=== PATIENT | male | born 1995 | race African-American/Black ===

== ENCOUNTER 2021-06-23 16:25 | Emergency (ER) | payer MEDICAID, SELFPAY ==
[2021-06-23 16:36] VITALS: BP 142/86; PULSE 89; RESP 18; O2SAT 98; BMI 26.2
--- NOTE | 2021-06-23 16:51 | XR_ITS ---
PROCEDURE INFORMATION: Exam: XR Right Foot Exam date and time: 06/23/2021 5:06 PM Age: 26 years old Clinical indication: Injury or trauma; Fall; Sprain or strain; Foot; Right TECHNIQUE: Imaging protocol: XR Right foot. Views: 3 or more views. COMPARISON: No relevant prior studies available. FINDINGS: Bones/joints: Lateral series 3 shows an ovoid 3 mm calcification anterior to the distal talus, which could be tiny cortical avulsion injury of indeterminate age. Chronic spurring noted at the anterior distal tibia, please see the ankle report for ankle findings. Arthritis at the 1st tarsal-metatarsal joint with prominent medial spurring of the medial cuneiform bone. There are no lytic skeletal lesions seen. Soft tissues: Soft tissue swelling greatest at the lateral ankle and hindfoot.No radiopaque foreign bodies seen. IMPRESSION: 1. Tiny ovoid 3 mm ossicle abutting the anterior distal talus which could be a tiny cortical avulsion injury of indeterminate age, correlate for point tenderness. 2. No other acute fracture or dislocation in the foot. 3. 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
--- NOTE | 2021-06-23 16:51 | XR_ITS ---
PROCEDURE INFORMATION: Exam: XR Right Ankle Exam date and time: 06/23/2021 5:08 PM Age: 26 years old Clinical indication: Injury or trauma; Fall; Sprain or strain; Ankle; Right TECHNIQUE: Imaging protocol: XR Right ankle. Views: 3 or more views. COMPARISON: CR XR FOOT RT MIN 3V 06/23/2021 5:06 PM FINDINGS: Bones/joints: A 4 mm chipped osteophyte suggested at the anterior tip of the distal tibia on lateral series 1, of indeterminate age, which could be an old injury or recent avulsion of a chronic osteophyte. There is degenerative cortical irregularity of the anterior distal talar cortex which appears chronic. There is also slight lobulation/degenerative cortical irregularity of the tip of the medial malleolus and of the medial talus at the deltoid ligament attachments. Bones otherwise appear intact, normally aligned, with normal mineralization. Small ankle effusion. Soft tissues: Periarticular soft tissue swelling, which appears greatest anteriorly and laterally.No radiopaque foreign bodies seen. IMPRESSION: 1. Mild chronic degenerative changes at the anterior ankle, as detailed above. 2. A 4 mm chipped anterior distal tibial osteophyte which could be old versus acute injury. 3. No other fracture or dislocation. 4. Ankle effusion. 5. Periarticular swelling, which could be due to sprain or contusion.
[2021-06-23 17:33] VITALS: BP 115/87; PULSE 85; RESP 16; TEMP 37; O2SAT 97; BMI 25.4
--- NOTE | 2021-06-23 17:36 | HMH.EDUTC ---
[facility] [place] Clinical Impression: Right ankle sprain Qualifiers: Encounter type: initial encounter Involved ligament of ankle: unspecified ligament Qualified Code(s): S93.401A - Sprain of unspecified ligament of right ankle, initial encounter Right foot sprain Qualifiers: Encounter type: initial encounter Qualified Code(s): S93.601A - Unspecified sprain of right foot, initial encounter Fall Qualifiers: Encounter type: initial encounter Qualified Code(s): W19.XXXA - Unspecified fall, initial encounter Disposition: Home, Self-Care Condition on Discharge: Good Instructions: How to Use Crutches, Ankle Sprain, DI for Ankle Sprain Additional Instructions: Rest the extremity, apply ice for 15 minutes as tolerated three or four times per day, Elevate the extremity as tolerated while you are resting. Take ibuprofen for pain. I sent in a prescription to your pharmacy. Follow up with Dr. Sanchez (podiatry). Sometimes there can be fractures that don't show up well on the first set of x-rays. So, you should follow up if you continue to have symptoms. I put in a referral but you need to call her office and schedule an appointment. Follow up with your regular doctor. GO TO THE ER FOR ANY WORSENING SYMPTOMS Prescriptions: Ibuprofen [Ibuprofen 800mg Tablet] 800 mg PO Q8HP PRN #30 tab PRN Reason: Moderate Pain Transmission Status: Received by [facility] #[id number] Referrals: Provider,Referral, [Primary Care Provider] - Rachel Sanchez DPM [Staff Physician] - Time of Disposition: 18:11 Medical Decision Making - Medical Records Medical records reviewed: No: I reviewed the patient's medical records. - Artemio Inquiry Pt receiving controlled substance: No Vital Signs: 06/23/21 16:36 06/23/21 17:33 06/23/21 18:22 Temperature 98.6 F 98.6 F Temperature Source Oral Pulse Rate 85 Pulse Rate [Right Radial] 89 85 Respiratory Rate 18 16 16 Blood Pressure 115/87 Blood Pressure [Right Arm] 142/86 H 115/87 Blood Pressure Mean [Right Arm] 104 96 Blood Pressure Source [Right Arm] Automatic Cuff Blood Pressure Position [Right Arm] Sitting 02 Sat by Pulse Oximetry 98 97 Oxygen Delivery Method Room Air [facility] [place] HPI - General Stated complaint: R ankle pain Time Seen by Provider: 06/23/21 17:36 Mode of Arrival: Ambulatory Source of Information: Patient Limitations: No Limitations Description of Symptoms (Recalled from Triage Doc. by RN): pt states he fell down some steps last night and is now having R foot/ankle pain. HEENT Symptoms (Recalled from RN notes): No Resp Symptoms (Recalled from RN notes): No Skin Symptoms (Recalled from RN notes): No MS Symptoms (Recalled from RN notes): Yes Functional Status (Recalled from RN notes): wnl - History of Present Illness Provider Complaint: He stepped down wrong off his steps last night and twisted her right foot and yobani. - Related Data Previous Rx's Medication Instructions Recorded Ibuprofen [Ibuprofen 800mg 800 mg PO Q8HP PRN #30 tab 06/23/21 Tablet] Allergies Allergy/AdvReac Type Severity Reaction Status Date / Time Sulfa (Sulfonamide Allergy Verified 06/23/21 17:36 Antibiotics) - Worker's Comp Is this a Worker's Comp case?: No [facility] History - Hepatitis A Screen Drug use history?: No High risk sexual behaviors?: No History of sexually transmitted infection?: No Currently employed?: No Childcare worker?: No Do you have indoor plumbing?: Yes Do you have electricity?: Yes Attestation statement:: This patient has been screened for Hepatitis A risk factors. I have reviewed the patient's past medical history: Yes ROS Obtained: Yes All systems reviewed & no additional complaints - Constitutional Constitutional: Denies chills, Denies fever(s) - Musculoskeletal Musculoskeletal: Reports as per HPI - Integumentary/Breasts Skin/Breast: Denies redness, Denies rash, Denies wounds - Neurologic Neurol
[2021-06-23 18:22] VITALS: BP 115/87; PULSE 85; RESP 16; TEMP 37
== END 2021-06-23 18:32 | disposition home or self-care (01) ==
PROVIDERS: Emergency Provider Nurse Practitioner Family
DX: S93.401A Sprain of unspecified ligament of right ankle, initial encounter (principal); S93.601A Unspecified sprain of right foot, initial encounter; W10.9XXA Fall (on) (from) unspecified stairs and steps, initial encounter
CPT/HCPCS: 29515; 73610; 73630; 99212; G0463

== ENCOUNTER 2021-06-29 15:16 | Emergency (ER) | payer MEDICAID, SELFPAY ==
--- NOTE | 2021-06-29 15:30 | XR_ITS ---
FINAL REPORT CLINICAL HISTORY: fall, pain, swelling COMPARISON: 06/23/2021 FINDINGS: RIGHT FOOT Three views demonstrate no acute fracture or dislocation. The joint spaces appear normal. The visualized bony structures are well aligned. No soft tissue abnormality is seen. IMPRESSION: No acute process. If symptoms persist, MRI may be helpful. Reviewed, Interpreted and Dictated by Sundeep Rodríguez III, MD Transcribed by Padmini Wilkerson Authenticated by Sundeep Rodríguez III, MD on 06/29/2021 04:23:31 PM [facility]
--- NOTE | 2021-06-29 15:30 | XR_ITS ---
FINAL REPORT CLINICAL HISTORY: fall, pain, swelling COMPARISON: 06/23/2021 FINDINGS: RIGHT ANKLE Three views demonstrate no acute fracture or dislocation. The joint spaces appear normal. The visualized bony structures are well aligned. No soft tissue abnormality is seen. IMPRESSION: No acute process. If symptoms persist, MRI may be helpful. Reviewed, Interpreted and Dictated by Sundeep Rodríguez III, MD Transcribed by Padmini Wilkerson Authenticated by Sundeep Rodríguez III, MD on 06/29/2021 04:23:29 PM [facility]
--- NOTE | 2021-06-29 15:30 | XR_ITS ---
FINAL REPORT CLINICAL HISTORY: fall, pain and swelling FINDINGS: RIGHT TIBIA FIBULA Two views demonstrate no acute fracture or dislocation. The joint spaces appear normal. The visualized bony structures are well aligned. No soft tissue abnormality is seen. IMPRESSION: No acute process. Reviewed, Interpreted and Dictated by Sundeep Rodríguez III, MD Transcribed by Padmini Wilkerson Authenticated by Sundeep Rodríguez III, MD on 06/29/2021 04:23:23 PM [facility]
[2021-06-29 17:10] VITALS: BP 128/81; PULSE 54; RESP 16; TEMP 36.7; O2SAT 100; BMI 26.7
--- NOTE | 2021-06-29 17:31 | HMH.EDUTC ---
[facility] – [place] Disposition Clinical Impression: Right foot pain Right ankle pain Qualifiers: Chronicity: acute Qualified Code(s): M25.571 - Pain in right ankle and joints of right foot Right ankle sprain Qualifiers: Encounter type: initial encounter Involved ligament of ankle: unspecified ligament Qualified Code(s): S93.401A - Sprain of unspecified ligament of right ankle, initial encounter Disposition: Home, Self-Care Condition on Discharge: Good Instructions: DI for Ankle Sprain, DI for Ankle Pain Additional Instructions: Rest the extremity, Elevate the extremity as tolerated while you are resting. Take ibuprofen for pain. Follow up with Dr. Sanchez (orthopedics). Sometimes there can be fractures that don't show up well on the first set of x-rays. So, you should follow up if you continue to have symptoms. I put in a referral but you need to call her office and schedule an appointment. Follow up with your regular doctor. GO TO THE ER FOR ANY WORSENING SYMPTOMS Referrals: Provider,Referral, MD [Primary Care Provider] - Time of Disposition: 17:56 Medical Decision Making - Medical Records Medical records reviewed: No: I reviewed the patient's medical records. - Artemio Inquiry Pt receiving controlled substance: No Vital Signs: 06/29/21 17:10 06/29/21 18:09 Temperature 98.1 F 98.1 F Temperature Source Oral Pulse Rate 54 L Pulse Rate [Left] 54 L Respiratory Rate 16 16 Blood Pressure 128/81 Blood Pressure [Right Arm] 128/81 Blood Pressure Mean [Right Arm] 96 02 Sat by Pulse Oximetry 100 [facility] [place] HPI - General Stated complaint: AO 06/21 injured R foot Time Seen by Provider: 06/29/21 17:31 Mode of Arrival: Ambulatory Source of Information: Patient Limitations: No Limitations Description of Symptoms (Recalled from Triage Doc. by RN): pt fell down stairs on 06/21 and was seen here. pt c/o R foot/ankle pain that is persisting. pt states he did not f/u with the supervisor [employer] department as instructed. HEENT Symptoms (Recalled from RN notes): No Resp Symptoms (Recalled from RN notes): No Skin Symptoms (Recalled from RN notes): No MS Symptoms (Recalled from RN notes): Yes Functional Status (Recalled from RN notes): wnl - History of Present Illness Provider Complaint: He is back with continued complaints of right foot pain. He has not followed up with orthopedics or podiatry. - Related Data Previous Rx's Medication Instructions Recorded Ibuprofen [Ibuprofen 800mg 800 mg PO Q8HP PRN #30 tab 06/23/21 Tablet] Allergies Allergy/AdvReac Type Severity Reaction Status Date / Time Sulfa (Sulfonamide Allergy Verified 06/23/21 17:36 Antibiotics) - Worker's Comp Is this a Worker's Comp case?: No [facility] History - Hepatitis A Screen Drug use history?: No High risk sexual behaviors?: No History of sexually transmitted infection?: No Currently employed?: No Childcare worker?: No Do you have indoor plumbing?: Yes Do you have electricity?: Yes Attestation statement:: This patient has been screened for Hepatitis A risk factors. I have reviewed the patient's past medical history: Yes ROS Obtained: No All systems reviewed & no additional complaints - Constitutional Constitutional: Denies chills, Denies fever(s) - Musculoskeletal Musculoskeletal: Reports as per HPI - Integumentary/Breasts Skin/Breast: Denies redness, Denies rash, Denies wounds - Neurologic Neurologic: Denies tingling/numbness/burning sensations Physical Exam - General General appearance: alert, in no apparent distress - Head Head exam: atraumatic, normocephalic, normal inspection - Eye Eye exam: Present: normal appearance, PERRL, EOMI - ENT ENT exam: Present: normal exam, normal oropharynx, mucous membranes moist, TM's normal bilaterally, normal external ear exam - Neck Neck exam: Present: normal inspection, full ROM, trachea midline. Absent: meningismus, lymphadenopathy - Chest Chest inspection: Pr
[2021-06-29 18:09] VITALS: BP 128/81; PULSE 54; RESP 16; TEMP 36.7
== END 2021-06-29 18:10 | disposition home or self-care (01) ==
PROVIDERS: Emergency Provider Nurse Practitioner Family
DX: S93.401A Sprain of unspecified ligament of right ankle, initial encounter (principal); W10.9XXA Fall (on) (from) unspecified stairs and steps, initial encounter; Y92.019 Unspecified place in single-family (private) house as the place of occurrence of the external cause
CPT/HCPCS: 73590; 73610; 73630; 99282

== ENCOUNTER 2021-10-13 19:22 | Emergency (ER) | payer MEDICAID, SELFPAY ==
[2021-10-13 19:44] VITALS: BMI 25.5
--- NOTE | 2021-10-13 19:45 | XR_ITS ---
PROCEDURE INFORMATION: Exam: XR Chest Exam date and time: 10/13/2021 7:51 PM Age: 26 years old Clinical indication: Cough TECHNIQUE: Imaging protocol: Radiologic exam of the chest. Views: 2 views. COMPARISON: No relevant prior studies available. FINDINGS: Lungs: Upper normal lung volumes. No consolidation. Pulmonary vessels do not appear congested. Question tiny right basilar granuloma seen on the frontal view, or this may be a prominent vascular shadow as this is not well seen on the lateral radiograph. No acute findings. Pleural spaces: Unremarkable. No significant pleural effusion. No pneumothorax. Heart/Mediastinum: The cardiac silhouette is normal. Bones/joints: There is no evidence of acute fracture. IMPRESSION: No acute findings.
[2021-10-13 19:56] VITALS: BP 130/73; PULSE 92; RESP 18; TEMP 37.6; O2SAT 99; BMI 25.5
[2021-10-13 20:03] LABS: Influenza A, PCR Not Detected (NotDetected); Influenza B, PCR Not Detected (NotDetected)
[2021-10-13 20:06] LABS: Basophils % 0.5 % (0.1-2.0); Eosinophils # 0.1 K/mm3 (0.0-0.4); Eosinophils % 1.1 % (0.1-12.0); Hematocrit 42.3 % (42.0-52.0); Hemoglobin 14.2 g/dL (14.1-18.0); Lymphocytes % 13.3 % (10-50); Mean Corpuscular HGB Conc 33.5 g/dL (31.8-35.4); Mean Corpuscular Hemoglobin 28.3 pg (27.0-31.2); Mean Corpuscular Volume 84.3 fl (80-94); Mean Platelet Volume 7.4 fl (7.4-10.4); Monocytes # 0.5 K/mm3 (0.1-1.0); Monocytes % 6.4 % (1.7-9.3); Neutrophils # 5.8 K/mm3 (1.8-7.8); Neutrophils % 78.8 % (37.0-80.0); Platelet Count 211 K/mm3 (142-424); Red Blood Count 5.02 M/mm3 (4.60-6.20); Red Cell Distribution Width 13.6 % (11.5-17.5); White Blood Count 7.3 K/mm3 (4.8-10.8)
[2021-10-13 20:10] LABS: Alanine Aminotransferase 23 U/L (12-78); Albumin Level 4.8 g/dl (3.5-5.0); Albumin/Globulin Ratio 1.7 (1.1-1.8); Alkaline Phosphatase 56 U/L (38-126); Anion Gap 10.5 mEq/L (5-15); Aspartate Amino Transferase 27 U/L (17-59); Bilirubin,Total 0.5 mg/dl (0.2-1.3); Blood Urea Nitrogen 9 mg/dl (9-20); Calcium 9.7 mg/dl (8.4-10.2); Carbon Dioxide 25 mmol/L (22.0-30.0); Chloride 102 mmol/L (98-107); Creatinine Clearance Estimated 140 mL/min (50-200); Estimated Glomerular Filt Rate 82 ml/min (>60); GFR (African American) 100 ML/MIN (>60); Globulin 2.8 g/dL (1.3-3.2); Glucose 127 mg/dl (74-100); Magnesium 1.6 mg/dl (1.6-2.3); Potassium 3.5 mmoL/L (3.5-5.1); Sodium 134 mmol/L (136-145); Total Protein,Serum 7.6 g/dl (6.3-8.2)
[2021-10-13 20:11] LABS: Lactic Acid 1.3 mmol/L (0.7-2.1)
[2021-10-13 20:16] LABS: C-Reactive Protein 1.5 mg/L (0-4)
[2021-10-13 20:38] LABS: Procalcitonin < 0.030 ng/mL (0.0-2.0)
--- NOTE | 2021-10-13 20:39 | HMH.EDURI ---
ED Disposition Clinical Impression: COVID-19 Disposition: Home, Self-Care Condition on Discharge: Good Instructions: DI for COVID-19 (Suspected or Confirmed ) Additional Instructions: fluids and tyenol and see pcp for follow up Referrals: Provider,Referral, [Primary Care Provider] - - Critical Care Critical Care Time: No Attestation: On 10/13/21, the high probability of a clinically significant, sudden or life threatening deterioration of the following system(s) required my full and direct attention, intervention and personal management. The time I documented below is in addition to time spent performing reported procedures but includes the following listed in this critical care notation. Medical Decision Making - Medical Records Medical records reviewed: Yes: I reviewed the patient's medical records. - Artemio Inquiry Pt receiving controlled substance: No Vital Signs: 10/13/21 19:56 Temperature 99.7 F H Temperature Source Oral Pulse Rate [Apical] 92 H Respiratory Rate 18 Blood Pressure [Right Arm] 130/73 Blood Pressure Mean [Right Arm] 92 Blood Pressure Source [Right Arm] Automatic Cuff Blood Pressure Position [Right Arm] Sitting 02 Sat by Pulse Oximetry 99 Oxygen Delivery Method Room Air - Lab Data Lab results reviewed: Yes: I reviewed the patient's lab results. Lab Results 10/13/21 19:40: WBC 7.3, RBC 5.02, Hgb 14.2, Hct 42.3, MCV 84.3, MCH 28.3, MCHC 33.5, RDW 13.6, Plt Count 211, MPV 7.4, Neut % (Auto) 78.8, Lymph % (Auto) 13.3, [place] % (Auto) 6.4, Eos % (Auto) 1.1, Baso % (Auto) 0.5, Neut # (Auto) 5.8, Lymph # (Auto) 1.0, [place] # (Auto) 0.5, Eos # (Auto) 0.1, Baso # (Auto) 0.0, ESR 4 10/13/21 19:40: Sodium 134 L, Potassium 3.5, Chloride 102, Carbon Dioxide 25, Anion Gap 10.5, BUN 9, Creatinine 1.10, Estimated Creat Clear 140, Estimated GFR 82, Est GFR ( Amer) 100, Glucose 127 H, Calcium 9.7, Magnesium 1.6, Total Bilirubin 0.5, AST 27, ALT 23, Alkaline Phosphatase 56, C-Reactive Protein 1.5, Total Protein 7.6, Albumin 4.8, Globulin 2.8, Albumin/Globulin Ratio 1.7, Procalcitonin < 0.030 10/13/21 19:40: Lactate 1.3 10/13/21 19:40: SARS-CoV-2 (PCR) Detected A, Influenza A Untype (PCR) Not detected, Influenza Type B (PCR) Not detected Result diagrams: 10/13/21 19:40 10/13/21 19:40 Orders (Tests/Meds): ED MEDICATIONS Generic Name Dose Route Start Last Admin Trade Name Freq PRN Reason Stop Dose Admin Sodium Chloride 1,000 mls @ 999 mls/hr 10/13/21 20:00 10/13/21 19:50 Sod Chlor 0.9% 1000ml Bag IV 10/13/21 21:00 999 mls/hr .Q1H1M ROXY Administration Discontinued Medications Generic Name Dose Route Start Last Admin Trade Name Freq PRN Reason Stop Dose Admin Acetaminophen 1,000 mg 10/13/21 19:46 10/13/21 19:49 Acetaminophen 500mg Tab PO 10/13/21 19:47 1,000 mg ONCE ONE Administration Ketorolac Tromethamine 30 mg 10/13/21 19:46 10/13/21 19:49 Ketorolac 30mg/Ml Vial IV 10/13/21 19:47 30 mg ONCE ONE Administration Methylprednisolone Sodium Succinate 125 mg 10/13/21 19:47 10/13/21 19:49 Methylprednisolone Sod Succ 125mg Vial IV 10/13/21 19:48 125 mg ONCE ONE Administration Ondansetron HCl 4 mg 10/13/21 19:46 10/13/21 19:49 Ondansetron 4mg/2ml Vial IV 10/13/21 19:47 4 mg ONCE ONE Administration ORDERS Category Date Time Status Urinalysis and Microscopic Stat Lab 10/13/21 21:07 Received Blood Culture Stat Micro 10/13/21 19:40 Received - Radiology Data #1 Image(s): Chest Image Reviewed: Yes I have reviewed radiologist's interpretation Preliminary Findings: Normal/NAD Medical Decision Narrative: pt with covid-19 and stable cxr and labs and exam URI/Sore Throat HPI - General Chief Complaint: Upper Respiratory Infection Stated Complaint: sore throat,body aches, SHIELDS Time Seen by Provider: 10/13/21 20:39 Mode of Arrival: Wheelchair Source of Information: Patient, Medical Record Limitations: No Limitatio
[2021-10-13 20:50] LABS: Erythrocyte Sedimentation Rate 4 mm/hr (0-15)
[2021-10-13 20:57] LABS: Coronavirus 19, PCR Detected (NotDetected)
[2021-10-13 21:11] LABS: Microscopic, Urine URINE MICROSCOPIC (MICROSCOPIC)
[2021-10-13 21:13] LABS: Appearance,Urine CLEAR (Clear); Bilirubin,Urine Negative (Negative); Blood, Urine Negative (Negative); Color,Urine YELLOW (Yellow); Glucose,Urine (UA) Negative (Negative); Ketones,Urine Negative (Negative); Leukocyte Esterase,Urine Negative (Negative); Nitrate,Urine Negative (Negative); Protein,Urine Negative (Negative)
[2021-10-13 21:14] VITALS: BP 122/69; PULSE 82; O2SAT 100
[2021-10-13 21:26] VITALS: BP 120/70; PULSE 80; RESP 18; TEMP 36.8; O2SAT 98
[2021-10-13 21:54] LABS: Bacteria,Urine 1+ /lpf; Mucus,Urine 1+ /lpf
== END 2021-10-13 21:28 | disposition home or self-care (01) ==
PROVIDERS: Emergency Provider Emergency Medicine
DX: U07.1 COVID-19 (principal)
CPT/HCPCS: 71046; 80053; 81001; 83605; 83735; 84145; 85025; 85651; 86140; 87040; 96365; 96375; 99284; C9803; J2405; U0003; U0005

== ENCOUNTER 2021-10-16 15:51 | Emergency (ER) | payer MEDICAID, SELFPAY ==
--- NOTE | 2021-10-16 15:51 | ECG_ITS ---
APPROVED REPORT Exam: Resting ECG HR:50 bpm ECG Measurements Heart Rate 50 AXES WI 155 P 70 QRSd 97 QRS 70 QT 377 T 54 QTc 350 Conclusion SINUS BRADYCARDIA WITH MARKED SINUS ARRHYTHMIA BORDERLINE ECG UNCONFIRMED REPORT Electronically signed by : Osvaldo Doyle MD 10/19/2021 21:16:25
[2021-10-16 15:59] VITALS: BP 135/86; PULSE 56; RESP 19; TEMP 37; O2SAT 100; BMI 27.7
--- NOTE | 2021-10-16 16:00 | PC.NURSE ---
IV established and blood sent to the lab.
[2021-10-16 16:19] LABS: Basophils # 0.1 K/mm3 (0-0.2); Basophils % 2.3 % (0.1-2.0); Eosinophils # 0.1 K/mm3 (0.0-0.4); Eosinophils % 1.1 % (0.1-12.0); Hematocrit 46.7 % (42.0-52.0); Hemoglobin 14.9 g/dL (14.1-18.0); Lymphocytes # 2.4 K/mm3 (0.7-4.5); Lymphocytes % 51.8 % (10-50); Mean Corpuscular Hemoglobin 27.9 pg (27.0-31.2); Mean Platelet Volume 8.3 fl (7.4-10.4); Monocytes # 0.3 K/mm3 (0.1-1.0); Monocytes % 6.8 % (1.7-9.3); Neutrophils # 1.8 K/mm3 (1.8-7.8); Platelet Count 166 K/mm3 (142-424); Red Blood Count 5.37 M/mm3 (4.60-6.20); Red Cell Distribution Width 13.6 % (11.5-17.5); White Blood Count 4.7 K/mm3 (4.8-10.8)
[2021-10-16 16:21] LABS: Chloride 105 mmol/L (98-107); Potassium 3.6 mmoL/L (3.5-5.1); Sodium 141 mmol/L (136-145)
[2021-10-16 16:23] LABS: Blood Urea Nitrogen 12 mg/dl (9-20); Creatinine Clearance Estimated 153 mL/min (50-200); Estimated Glomerular Filt Rate 92 ml/min (>60); GFR (African American) 111 ML/MIN (>60)
[2021-10-16 16:24] LABS: Alanine Aminotransferase 26 U/L (12-78); Albumin Level 4.3 g/dl (3.5-5.0); Albumin/Globulin Ratio 1.6 (1.1-1.8); Alkaline Phosphatase 36 U/L (38-126); Anion Gap 9.6 mEq/L (5-15); Aspartate Amino Transferase 37 U/L (17-59); Bilirubin,Total 0.4 mg/dl (0.2-1.3); Calcium 8.9 mg/dl (8.4-10.2); Carbon Dioxide 30 mmol/L (22.0-30.0); Globulin 2.7 g/dL (1.3-3.2); Glucose 99 mg/dl (74-100)
[2021-10-16 16:25] LABS: MANUAL DIFFERENTIAL MANUAL DIFFERENTIAL (MANUAL DIFF)
--- NOTE | 2021-10-16 16:25 | PC.NURSE ---
portable xr at the bedside
--- NOTE | 2021-10-16 16:26 | HMH.EDGENADL ---
ED Disposition Clinical Impression: Chest wall pain, COVID-19 Disposition: Home, Self-Care Condition on Discharge: Good Additional Instructions: You have been evaluated for chest pain with cough, likely due to COVID-19 and chest wall pain. Please take Tylenol and Motrin for aches and pains. Monitor your symptoms closely. Follow-up with your primary care doctor in 1 to 2 days for symptom recheck. Return to the emergency department at once for any new or worsening chest pain, difficulty breathing, any other concerns. Referrals: Provider,Referral, [Primary Care Provider] - Time of Disposition: 17:21 - Critical Care Critical Care Time: No Attestation: On 10/16/21, the high probability of a clinically significant, sudden or life threatening deterioration of the following system(s) required my full and direct attention, intervention and personal management. The time I documented below is in addition to time spent performing reported procedures but includes the following listed in this critical care notation. Medical Decision Making - Medical Records Medical records reviewed: Yes: I reviewed the patient's medical records. - Artemio Inquiry Pt receiving controlled substance: No Vital Signs: 10/16/21 15:59 10/16/21 16:30 Temperature 98.6 F Temperature Source Oral Pulse Rate 67 Pulse Rate [Right Radial] 56 L Respiratory Rate 19 18 Blood Pressure 117/73 Blood Pressure [Right Arm] 135/86 Blood Pressure Mean 87 Blood Pressure Mean [Right Arm] 102 02 Sat by Pulse Oximetry 100 100 Oxygen Delivery Method Room Air - Lab Data Lab Results 10/16/21 15:57: WBC 4.7 L D, RBC 5.37, Hgb 14.9, Hct 46.7, MCV 87.0, MCH 27.9, MCHC 32.0, RDW 13.6, Plt Count 166, MPV 8.3, Neut % (Auto) 38.0, Lymph % (Auto) 51.8 H, [place] % (Auto) 6.8, Eos % (Auto) 1.1, Baso % (Auto) 2.3 H, Neut # (Auto) 1.8, Lymph # (Auto) 2.4, [place] # (Auto) 0.3, Eos # (Auto) 0.1, Baso # (Auto) 0.1 10/16/21 15:57: Sodium 141, Potassium 3.6, Chloride 105, Carbon Dioxide 30, Anion Gap 9.6, BUN 12 D, Creatinine 1.00, Estimated Creat Clear 153, Estimated GFR 92, Est GFR ( Amer) 111, Glucose 99, Calcium 8.9, Total Bilirubin 0.4, AST 37 D, ALT 26, Alkaline Phosphatase 36 L, Troponin I < 0.01, C-Reactive Protein 1.0 D, Total Protein 7.0, Albumin 4.3, Globulin 2.7, Albumin/Globulin Ratio 1.6 Result diagrams: 10/16/21 15:57 10/16/21 15:57 Orders (Tests/Meds): ED MEDICATIONS Discontinued Medications Generic Name Dose Route Start Last Admin Trade Name Freq PRN Reason Stop Dose Admin Ibuprofen 600 mg 10/16/21 17:06 Ibuprofen 600 Mg Tablet PO 10/16/21 17:07 ONCE ONE ORDERS Category Date Time Status Complete Blood Count Auto Diff Stat Lab 10/16/21 15:57 Results Troponin I Q3H Lab 10/16/21 19:15 Ordered Troponin I Q3H Lab 10/16/21 22:15 Ordered - ECG Data Tracing #1 Sinus rhythm with ventricular rate of 50 beats minute. QRS 97, QTc 350. No ST segment changes. No arrhythmia. Medical Decision Narrative: In summary this is a 26-year-old male on day 4 of COVID virus presenting to the emergency department with chest pain. Patient clinically stable on arrival. Vital signs within normal limits. No tachycardia or hypoxia. Will obtain CBC, BMP, chest x-ray, EKG, troponin profile, CRP. He denies shortness of breath. No pleuritic chest pain. No tachycardia or hypoxia to suggest pulmonary embolism. EKG shows sinus bradycardia. No evidence of ischemia or arrhythmia. X-ray shows no focal opacity or evidence of multifocal pneumonia. Laboratory results are quite reassuring. Troponin undetectable. Concern for ischemic disease is quite low. CRP is not elevated. Doubt myocarditis. \ On reassessment, patient says he is feeling somewhat better. Is chest pain-free at this time 2-hour delta troponin obtained. Continues to be undetectable. For presentation is most concerning for chest wall pain in the setting
[2021-10-16 16:30] VITALS: BP 117/73; PULSE 67; RESP 18; O2SAT 100
[2021-10-16 16:38] LABS: Troponin I < 0.01 ng/ml (0.00-0.034)
[2021-10-16 17:00] VITALS: BP 116/70; PULSE 61; RESP 18; O2SAT 99
[2021-10-16 17:30] VITALS: BP 123/79; PULSE 51; RESP 18; O2SAT 100
--- NOTE | 2021-10-16 17:49 | XR_ITS ---
PROCEDURE INFORMATION: Exam: XR Chest Exam date and time: 10/16/21 06:03 PM Age: 26 years old Clinical indication: Pain; Chest pressure; Additional info: Chest pain TECHNIQUE: Imaging protocol: Radiologic exam of the chest. Views: 1 view. COMPARISON: CR XR CHEST 2V 10/13/21 07:51 PM FINDINGS: Lungs: Left lower lobe ground-glass infiltrate new from comparison. Pleural spaces: Unremarkable. No pleural effusion. No pneumothorax. Heart/Mediastinum: Unremarkable. No cardiomegaly. Bones/joints: Unremarkable. IMPRESSION: Left lower lobe ground-glass infiltrate new from comparison.
[2021-10-16 17:50] LABS: Anisocytosis 1+; Hypochromasia 1+; Lymphocytes % 42 % (10-50); Monocytes % 10 % (2-9); Neutrophils % 48 % (42-76); Platelet Estimate Normal; Total Cells Counted 100
[2021-10-16 18:00] VITALS: BP 125/78; PULSE 54; RESP 18; O2SAT 100
--- NOTE | 2021-10-16 18:11 | PC.NURSE ---
rounded on pt at this time. no needs voiced
--- NOTE | 2021-10-16 18:24 | PC.NURSE ---
LAB HERE DRAWING 2ND TROP PER MD REQUEST
[2021-10-16 18:58] LABS: Troponin I < 0.01 ng/ml (0.00-0.034)
[2021-10-16 19:19] VITALS: BP 132/81; PULSE 66; RESP 20; TEMP 37; O2SAT 99
== END 2021-10-16 19:21 | disposition home or self-care (01) ==
PROVIDERS: Emergency Provider Emergency Medicine
DX: U07.1 COVID-19 (principal); R07.89 Other chest pain; R05.9 Cough, unspecified; Z72.0 Tobacco use
CPT/HCPCS: 36415; 71045; 80053; 84484; 85007; 85025; 86140; 93005; 99284

== ENCOUNTER 2022-06-07 10:13 | Emergency (ER) | payer MEDICAID, SELFPAY ==
[2022-06-07 10:20] VITALS: BP 144/71; PULSE 69; RESP 20; TEMP 36.9; O2SAT 97; BMI 23.7
[2022-06-07 10:34] VITALS: BP 144/71; PULSE 69; RESP 20; TEMP 36.9; O2SAT 97
--- NOTE | 2022-06-07 10:34 | EXP.UTC ---
Discharge Plan Disposition Patient Disposition: Home, Self-Care Condition: Good Prescriptions Prescriptions: New azithromycin [Zithromax Z-Maciel] 250 mg tablet See Rx Instructions .ROUTE .COMPLEX 5 Days Qty: 6 0RF Rx Instructions: For 250 mg dose pack: take 500 mg today (day 1), then 250 mg for 4 days (days 2-5) ondansetron 4 mg tablet,disintegrating 4 mg PO Q8H PRN (Reason: nausea and vomiting) Qty: 10 0RF Referrals Follow up/Referrals: Provider,Referral, MD [Primary Care Provider] - See instructions Activity Restrictions/Add. Instructions Additional Instructions/Restrictions: *Monitor Temp, Over the counter Motrin or Tylenol as directed/as needed Tylenol every 4 hours and Motrin every 6 hours (as long as your family doctor has told you that you can take it) for fever or pain. and straight to ER if unable to lower temp less than 101.0 after medication given *Warm salt water gargles may help to soothe the throat *Throat Lozenges? *Warm fluids like tea with honey may help to soothe the throat? *Sleep elevated *Humidifier/Vaporizer Your throat swab was sent for culture. Those results are typically sent to your primary care. Be sure to follow up in 2-3 days with your family doctor/primary care physician if no improvement so they can review those result and treat if necessary. If you don?t have a primary care doctor, I recommend you get one but in the mean time, you will have to return to a walk in clinic Follow up IMMEDIATELY for new or worsening symptoms or no Noticeable improvement over the next 48-72 hours. 911 for difficulty breathing or swallowing You were tested for today for COVID19 your test result should be back in the next 24-48 hours, you may check your results on the [facility] [employer] [facility] Portal Clinical Impressions Clinical Impression: Pharyngitis Stand Alone Forms Stand Alone Forms: Work/School Release Instructions Patient Instructions: Sore Throat, DI for Nausea -- Adult Discharge ED Provider: Blanche Pulido [facility] [place], [place] HPI General Stated complaint: Cough, drainage, vomiting, bodyaches Mode of Arrival: Ambulatory Source of Information: Patient Limitations: No Limitations Time Seen by Provider: 06/07/22 10:34 Description of Symptoms (Recalled from Triage Doc. by RN): PATIENT C/O COUGH, BODY ACHES, AND VOMITING X 4-5 DAYS HEENT Symptoms (Recalled from RN notes): No Resp Symptoms (Recalled from RN notes): Yes Skin Symptoms (Recalled from RN notes): No MS Symptoms (Recalled from RN notes): No Functional Status (Recalled from RN notes): WNL History of Present Illness Provider Complaint: Patient states that he has been having cough, sore throat, body aches and chills for about 4-5 days States that he has had several episodes of vomiting but none in last couple of days States that his throat is what brought him in today it is hurting worse Related Data Previous Rx's Medication Instructions Recorded azithromycin 250 mg tablet See Rx Instructions PO .COMPLEX 5 06/07/22 (Zithromax Z-Maciel) days #6 tabs ondansetron 4 mg disintegrating 4 mg PO Q8H PRN nausea and 06/07/22 tablet vomiting #10 tabs Allergies Allergy/AdvReac Type Severity Reaction Status Date / Time Sulfa (Sulfonamide Allergy Verified 07/08/21 08:12 Antibiotics) Worker's Comp Is this a Worker's Comp case?: No [facility] Disclaimer: The information contained in this section may have been updated after the patient was seen, as this information can be updated by other users. Social History Smoking Status: Current every day smoker (vapes) alcohol intake: never current occupational status: unemployed Travel in the last 8 weeks: None ROS Obtained: Yes All systems reviewed & no additional complaints except as documented and Yes Systems reviewed as appropriate & no additional complaints except as documented Constitutional Constitutional: Reports system reviewed and no additional complaints,
[2022-06-07 10:48] LABS: UTC Strep Screen (Rapid) Negative (Negative)
[2022-06-07 10:49] LABS: UTC Influenza A Antigen Negative (Negative); UTC Influenza B Antigen Negative (Negative)
== END 2022-06-07 11:04 | disposition home or self-care (01) ==
PROVIDERS: Emergency Provider Nurse Practitioner
DX: J02.9 Acute pharyngitis, unspecified (principal); R05.1 Acute cough; R11.10 Vomiting, unspecified; F17.290 Nicotine dependence, other tobacco product, uncomplicated; Z20.822 Contact with and (suspected) exposure to COVID-19
CPT/HCPCS: 87804; 87880; 99212; 99214; C9803; G0463; U0003; U0005

== ENCOUNTER 2022-07-10 17:55 | Emergency (ER) | payer MEDICAID, SELFPAY ==
[2022-07-10 18:10] VITALS: BP 143/84; PULSE 93; RESP 19; TEMP 37.9; O2SAT 98; BMI 23.7
--- NOTE | 2022-07-10 18:27 | EXP.UTC ---
Discharge Plan Disposition Patient Disposition: Home, Self-Care Condition: Good Prescriptions Prescriptions: New reqwzpuyknocaft-zavuwoesc-TB [Bromfed DM] 2-30-10 mg/5 mL Syrup 10 ml PO Q4H PRN (Reason: Cough) Qty: 200 0RF Referrals Follow up/Referrals: Provider,Referral, [Primary Care Provider] - See instructions Activity Restrictions/Add. Instructions Additional Instructions/Restrictions: *Monitor Temp, Over the counter Motrin or Tylenol as directed/as needed Tylenol every 4 hours and Motrin every 6 hours (as long as your family doctor has told you that you can take it) for fever or pain. and straight to ER if unable to lower temp less than 101.0 after medication given *Warm salt water gargles may help to soothe the throat *Throat Lozenges? *Warm fluids like tea with honey may help to soothe the throat? *Sleep elevated *Humidifier/Vaporizer Your throat swab was sent for culture. Those results are typically sent to your primary care. Be sure to follow up in 2-3 days with your family doctor/primary care physician if no improvement so they can review those result and treat if necessary. If you don?t have a primary care doctor, I recommend you get one but in the mean time, you will have to return to a walk in clinic Follow up IMMEDIATELY for new or worsening symptoms or no Noticeable improvement over the next 48-72 hours. 911 for difficulty breathing or swallowing You were tested for today for COVID19 your test result should be back in the next 24-48 hours, you may check your results on the [facility] [employer] Health Portal Clinical Impressions Clinical Impression: Viral syndrome Stand Alone Forms Stand Alone Forms: Work/School Release Instructions Patient Instructions: Sore Throat, DI for Viral Upper Respiratory Infection -- Adult, DI for Nasal Congestion Discharge ED Provider: Blanche Pulido [place] [facility] [place] HPI General Stated complaint: Sore throat; cough; fever Mode of Arrival: Ambulatory Source of Information: Patient Limitations: No Limitations Time Seen by Provider: 07/10/22 18:27 Description of Symptoms (Recalled from Triage Doc. by RN): PATIENT C/O BODY ACHES, SORE THROAT, CHILLS AND COUGH SINCE YESTERDAY HEENT Symptoms (Recalled from RN notes): Yes Resp Symptoms (Recalled from RN notes): No Skin Symptoms (Recalled from RN notes): No MS Symptoms (Recalled from RN notes): No Functional Status (Recalled from RN notes): WNL History of Present Illness Provider Complaint: Patient states that he started feeling bad yesterday States that he has been having runny nose, slight cough, sore throat, fever, chills and bodyaches States that today he was still not feeling well so he came in to get checked Related Data Previous Rx's Medication Instructions Recorded ardychjyivnujtf-nhzumzdazzikdhq-ML 10 ml PO Q4H PRN Cough #200 mL 07/10/22 2 mg-30 mg-10 mg/5 mL oral syrup (Bromfed DM) Allergies Allergy/AdvReac Type Severity Reaction Status Date / Time Sulfa (Sulfonamide Allergy Verified 07/08/21 08:12 Antibiotics) Worker's Comp Is this a Worker's Comp case?: No [facility] Disclaimer: The information contained in this section may have been updated after the patient was seen, as this information can be updated by other users. Social History Smoking Status: Current every day smoker (vapes) alcohol intake: never current occupational status: unemployed Travel in the last 8 weeks: None ROS Obtained: Yes All systems reviewed & no additional complaints except as documented and Yes Systems reviewed as appropriate & no additional complaints except as documented Constitutional Constitutional: Reports system reviewed and no additional complaints, except as documented, Reports as per HPI, Reports body ache, Reports chills and Reports fever(s) ENT Ears, Nose, Mouth, and Throat: Reports system reviewed and no additional complaints, except as documented, Reports as per HPI, Reports nasal c
[2022-07-10 18:41] LABS: UTC Strep Screen (Rapid) Negative (Negative)
[2022-07-10 18:41] LABS: UTC Influenza A Antigen Negative (Negative); UTC Influenza B Antigen Negative (Negative)
[2022-07-10 18:48] VITALS: BP 143/84; PULSE 93; RESP 19; TEMP 37.9; O2SAT 98
== END 2022-07-10 18:50 | disposition home or self-care (01) ==
PROVIDERS: Emergency Provider Nurse Practitioner
DX: R05.9 Cough, unspecified (principal); R50.9 Fever, unspecified; R07.0 Pain in throat; F17.290 Nicotine dependence, other tobacco product, uncomplicated
CPT/HCPCS: 87804; 87880; 99212; 99214; C9803; G0463; U0003; U0005

== ENCOUNTER 2022-07-11 10:37 | Emergency (ER) | payer MEDICAID, SELFPAY ==
--- NOTE | 2022-07-11 10:30 | ECG_ITS ---
APPROVED REPORT Exam: Resting ECG HR:80 bpm ECG Measurements Heart Rate 80 AXES VA 169 P 67 QRSd 93 QRS 80 QT 333 T 59 QTc 370 Conclusion SINUS RHYTHM NORMAL ECG UNCONFIRMED REPORT Electronically signed by : Osvaldo Doyle MD 07/11/2022 20:30:10
[2022-07-11 10:37] VITALS: BP 143/78; PULSE 84; RESP 17; TEMP 36.8; O2SAT 100; BMI 23.6
[2022-07-11 10:38] VITALS: BMI 23.7
--- NOTE | 2022-07-11 10:49 | XR_ITS ---
FINAL REPORT CLINICAL HISTORY: cough, chest pain COMPARISON: 10/16/2021 FINDINGS: Two views of the chest were obtained. The heart size and pulmonary vascularity are within normal limits. The mediastinum is normal. No acute pulmonary abnormality is identified. There is no pneumothorax. The bony thorax is intact. IMPRESSION: No active cardiopulmonary disease. Reviewed, Interpreted and Dictated by Sundeep Rodríguez III, MD Transcribed by Stacia Vaughn Authenticated and [facility]
[2022-07-11 10:50] LABS: Basophils # 0.2 K/mm3 (0-0.2); Basophils % 1.7 % (0.1-2.0); Chloride 101 mmol/L (98-107); Eosinophils # 0.1 K/mm3 (0.0-0.4); Eosinophils % 1.2 % (0.1-12.0); Hematocrit 48.7 % (42.0-52.0); Hemoglobin 15.4 g/dL (14.1-18.0); Lymphocytes # 1.2 K/mm3 (0.7-4.5); Lymphocytes % 12.6 % (10-50); Mean Corpuscular HGB Conc 31.7 g/dL (31.8-35.4); Mean Corpuscular Volume 88.4 fl (80-94); Mean Platelet Volume 7.8 fl (7.4-10.4); Monocytes # 0.6 K/mm3 (0.1-1.0); Monocytes % 6.3 % (1.7-9.3); Neutrophils # 7.2 K/mm3 (1.8-7.8); Neutrophils % 78.2 % (37.0-80.0); Platelet Count 192 K/mm3 (142-424); Potassium 3.8 mmoL/L (3.5-5.1); Red Blood Count 5.51 M/mm3 (4.60-6.20); Red Cell Distribution Width 13.9 % (11.5-17.5); Sodium 137 mmol/L (136-145); White Blood Count 9.2 K/mm3 (4.8-10.8)
[2022-07-11 10:53] LABS: Anion Gap 12.8 mEq/L (5-15); Blood Urea Nitrogen 12 mg/dl (9-20); Carbon Dioxide 27 mmol/L (22.0-30.0); Creatinine Clearance Estimated 132 mL/min (50-200); Estimated Glomerular Filt Rate 82 ml/min (>60); GFR (African American) 99 ML/MIN (>60)
[2022-07-11 10:54] LABS: Calcium 9.3 mg/dl (8.4-10.2); Glucose 109 mg/dl (74-100)
--- NOTE | 2022-07-11 10:54 | HMH.EDCP ---
Discharge Plan Disposition Patient Disposition: Home Health Service Prescriptions Prescriptions: New azithromycin [Zithromax] 250 mg tablet See Rx Instructions .ROUTE .COMPLEX Qty: 6 0RF Rx Instructions: For 250 mg dose pack: take 500 mg today (day 1), then 250 mg for 4 days (days 2-5) methylprednisolone [Medrol (Maciel)] 4 mg tablets,dose pack 4 mg PO DAILY Qty: 21 0RF albuterol sulfate 90 mcg/actuation aero powdr breath act w/sensor 2 inh inhalation Q4H PRN (Reason: shortness of breath or wheezing) Qty: 1 0RF oseltamivir [Tamiflu] 75 mg capsule 75 mg PO BID 5 Days Qty: 10 0RF No Action tgsftdlqfzudolp-lvrtywaus-SJ [Bromfed DM] 2-30-10 mg/5 mL Syrup 10 ml PO Q4H PRN (Reason: Cough) Qty: 200 0RF Referrals Follow up/Referrals: Provider,Referral, MD [Primary Care Provider] - See instructions Clinical Impressions Clinical Impression: Anterior chest wall pain, Influenza A, Bronchitis Instructions Patient Instructions: DI for Atypical Chest Pain Discharge ED Provider: Camille Staples Chest Pain HPI General Chief Complaint: Chest Pain Stated Complaint: Chest Pain Time Seen by Provider: 07/11/22 10:44 Mode of Arrival: Ambulatory Source of Information: Patient Limitations: No Limitations Description of Symptoms (Recalled from ER Triage Doc. by RN): 27 M presents from home for mid-sternal chest pain that started around 0200 this date. He reports being seen in our [facility] yesterday, tested negative for Flu and Covid. He was prescribed cough medicine; however, does not feel it is working. This chest pain is worse when coughing. History of Present Illness HPI narrative: Patient is a 27-year-old -British male who is here secondary to left-sided chest pain. Patient is complaining left-sided chest pain sharp in nature hurts when he coughs and takes a deep breath. Patient stated that he has been having this since this morning. He has been sick for the past couple of days with fever chills cough congestion. He came to the urgent care yesterday had swabs and sent home. He said he is not any better. He said fevers of 101-103 at home. Patient stated that he has been eating drinking and urinating fine. No nausea vomiting diarrhea. He states chest pain is left-sided chest sharp in nature does not radiate hurts when he coughs or takes a deep breath MD complaint: chest pain Onset (ago): hour(s) Time: 08:00 Duration: intermittent Activity at onset: during rest Pain location: left chest Severity: mild Severity scale (1-10): 5 Quality: sharp Pain radiation: none Relieving factors: nothing Exacerbating factors: inspiration, palpation and movement Context: recent illness Associated symptoms: dyspnea, fever and cough Treatments prior to or on arrival for Cardiac Chest Pain: none EUNICE Score for Non-Stemi Age of Patient: <30 years old Heart Rate: 70-89 bpm Related Data Previous Rx's Medication Instructions Recorded qdxvhkiuvzhowdz-dbwuowxixzwymnx-TG 10 ml PO Q4H PRN Cough #200 mL 07/10/22 2 mg-30 mg-10 mg/5 mL oral syrup (Bromfed DM) albuterol sulfate 90 mcg/actuation 2 inh inhalation Q4H PRN shortness 07/11/22 breath activated powder of breath or wheezing #1 ea inhaler,sensor azithromycin 250 mg tablet See Rx Instructions PO .COMPLEX #6 07/11/22 (Zithromax) tabs methylprednisolone 4 mg tablets in 4 mg PO DAILY #21 tabs 07/11/22 a dose pack (Medrol (Maciel)) oseltamivir 75 mg capsule (Tamiflu) 75 mg PO BID 5 days #10 caps 07/11/22 Allergies Allergy/AdvReac Type Severity Reaction Status Date / Time Sulfa (Sulfonamide Allergy Verified 07/08/21 08:12 Antibiotics) [facility] Disclaimer: The information contained in this section may have been updated after the patient was seen, as this information can be updated by other users. Social History Smoking Status: Current every day smoker alcohol intake: never current occupational status: unemployed Travel in the last 8 week
[2022-07-11 11:01] VITALS: BP 125/63; PULSE 78; O2SAT 100
[2022-07-11 11:04] LABS: Activated Partial Thrombo Time 26.6 seconds (22.8-30.6)
[2022-07-11 11:09] LABS: Troponin I < 0.01 ng/ml (0.00-0.034)
[2022-07-11 11:30] VITALS: BP 140/65; PULSE 62; O2SAT 99
[2022-07-11 12:00] VITALS: BP 133/72; PULSE 86; O2SAT 95
--- NOTE | 2022-07-11 12:18 | PC.NURSE ---
Patient refused Morphine because he does not have a ride. Attending notified
[2022-07-11 12:30] VITALS: BP 132/68; PULSE 63; O2SAT 95
--- NOTE | 2022-07-11 12:54 | PC.NURSE ---
lab at [facility] drawing troponin- 2hr troponin per ER MD request.
[2022-07-11 12:58] LABS: Coronavirus 19, PCR Not Detected (NotDetected); Influenza B, PCR Not Detected (NotDetected)
[2022-07-11 13:28] LABS: Influenza A, PCR Detected (NotDetected)
[2022-07-11 13:36] LABS: Troponin I < 0.01 ng/ml (0.00-0.034)
[2022-07-11 14:07] VITALS: BP 132/73; PULSE 81; PULSE 84; RESP 17; TEMP 37.1; O2SAT 98
== END 2022-07-11 14:16 | disposition home health service (06) ==
PROVIDERS: Emergency Provider Emergency Medicine
DX: R07.89 Other chest pain (principal); J40 Bronchitis, not specified as acute or chronic; F17.200 Nicotine dependence, unspecified, uncomplicated
CPT/HCPCS: 71046; 80048; 84484; 85025; 85730; 93005; 96374; 96375; 99285; C9803; U0003; U0005

== ENCOUNTER 2022-10-04 12:50 | Emergency (ER) | payer MEDICAID, SELFPAY ==
[2022-10-04 12:51] VITALS: BP 119/82; PULSE 60; RESP 18; TEMP 36.6; O2SAT 96; BMI 23.7
--- NOTE | 2022-10-04 13:03 | XR_ITS ---
FINAL REPORT CLINICAL HISTORY: pain COMPARISON: None FINDINGS: RIGHT WRIST Three views demonstrate no acute fracture or dislocation. The visualized joint spaces are normally aligned. The soft tissues are unremarkable. IMPRESSION: No acute bony abnormality. Reviewed, Interpreted and Dictated by Sundeep Rodríguez III, MD Transcribed by Carleen Hawkins Authenticated and [facility]
--- NOTE | 2022-10-04 13:03 | XR_ITS ---
FINAL REPORT CLINICAL HISTORY: pain COMPARISON: None FINDINGS: RIGHT HAND: 3 views of the right hand were obtained. There is no acute fracture or dislocation. Visualized joint spaces are normally aligned. Soft tissues are unremarkable. IMPRESSION: No acute bony abnormality. Reviewed, Interpreted and Dictated by Sundeep Rodríguez III, MD Transcribed by Carleen Hawkins Authenticated and [facility]
--- NOTE | 2022-10-04 13:06 | EXP.UTC ---
Discharge Plan Disposition Patient Disposition: Home, Self-Care Condition: Good Prescriptions Prescriptions: New ibuprofen [IBU] 800 mg tablet 800 mg PO Q8HP PRN (Reason: Moderate Pain) Qty: 30 0RF No Action kjkohzllggskflg-duyhufnvb-LH [Bromfed DM] 2-30-10 mg/5 mL Syrup 10 ml PO Q4H PRN (Reason: Cough) Qty: 200 0RF azithromycin [Zithromax] 250 mg tablet See Rx Instructions .ROUTE .COMPLEX Qty: 6 0RF Rx Instructions: For 250 mg dose pack: take 500 mg today (day 1), then 250 mg for 4 days (days 2-5) methylprednisolone [Medrol (Maciel)] 4 mg tablets,dose pack 4 mg PO DAILY Qty: 21 0RF albuterol sulfate 90 mcg/actuation aero powdr breath act w/sensor 2 inh inhalation Q4H PRN (Reason: shortness of breath or wheezing) Qty: 1 0RF oseltamivir [Tamiflu] 75 mg capsule 75 mg PO BID 5 Days Qty: 10 0RF Referrals Follow up/Referrals: Ilya Orosco JR, MD [Physician] - See instructions Provider,MD David [Primary Care Provider] - See instructions Activity Restrictions/Add. Instructions Additional Instructions/Restrictions: Rest the extremity, apply ice for 15 minutes as tolerated three or four times per day, Elevate the extremity as tolerated while you are resting. Take ibuprofen for pain. I sent in a prescription to your pharmacy. Follow up with Dr. Orosco (orthopedics). Sometimes there can be fractures that don't show up well on the first set of x-rays. So, you should follow up if you continue to have symptoms. I put in a referral but you need to call his office and schedule an appointment. Follow up with your regular doctor. GO TO THE ER FOR ANY WORSENING SYMPTOMS Clinical Impressions Clinical Impression: Sprain of hand, right Stand Alone Forms Stand Alone Forms: Work/School Release Instructions Patient Instructions: DI for Hand Injury Discharge ED Provider: Orlin Jacobs [facility] General Stated complaint: AO@home 10/01 RT hand pain Mode of Arrival: Ambulatory Source of Information: Patient Limitations: No Limitations Time Seen by Provider: 10/04/22 12:58 Description of Symptoms (Recalled from Triage Doc. by RN): Patient reports playing with his dog and went to throw a ball when his hand hit a concrete wall 3 days ago. HEENT Symptoms (Recalled from RN notes): No Resp Symptoms (Recalled from RN notes): No Skin Symptoms (Recalled from RN notes): No MS Symptoms (Recalled from RN notes): Yes Functional Status (Recalled from RN notes): wnl History of Present Illness Provider Complaint: He states that, 3 days ago, he was throwing a ball for his dog when he slipped and accidentally hit his right hand against the wall. He has had hand pain since then. Related Data Previous Rx's Medication Instructions Recorded jshbkjwwtrxobaa-fdkzdvhzmcdirfv-GR 10 ml PO Q4H PRN Cough #200 mL 07/10/22 2 mg-30 mg-10 mg/5 mL oral syrup (Bromfed DM) albuterol sulfate 90 mcg/actuation 2 inh inhalation Q4H PRN shortness 07/11/22 breath activated powder of breath or wheezing #1 ea inhaler,sensor azithromycin 250 mg tablet See Rx Instructions PO .COMPLEX #6 07/11/22 (Zithromax) tabs methylprednisolone 4 mg tablets in 4 mg PO DAILY #21 tabs 07/11/22 a dose pack (Medrol (Maciel)) oseltamivir 75 mg capsule (Tamiflu) 75 mg PO BID 5 days #10 caps 07/11/22 ibuprofen 800 mg tablet (IBU) 800 mg PO Q8HP PRN Moderate Pain 10/04/22 #30 tabs Allergies Allergy/AdvReac Type Severity Reaction Status Date / Time Sulfa (Sulfonamide Allergy Verified 07/08/21 08:12 Antibiotics) Worker's Comp Is this a Worker's Comp case?: No [facility] Disclaimer: The information contained in this section may have been updated after the patient was seen, as this information can be updated by other users. Social History Smoking Status: Current every day smoker alcohol intake: never current occupational status: unemployed Travel in the last 8 weeks
[2022-10-04 14:06] VITALS: BP 119/82; PULSE 60; RESP 18; TEMP 36.6; O2SAT 96
== END 2022-10-04 14:08 | disposition home or self-care (01) ==
PROVIDERS: Emergency Provider Nurse Practitioner Family
DX: S63.91XA Sprain of unspecified part of right wrist and hand, initial encounter (principal); F17.210 Nicotine dependence, cigarettes, uncomplicated; W22.8XXA Striking against or struck by other objects, initial encounter
CPT/HCPCS: 73110; 73130; 99212; 99214; G0463

== ENCOUNTER 2023-01-07 22:22 | Emergency (ER) | payer MEDICAID, SELFPAY ==
[2023-01-07 22:24] VITALS: BP 136/92; PULSE 75; RESP 16; TEMP 36.8; O2SAT 98; BMI 23.7
--- NOTE | 2023-01-07 22:36 | XR_ITS ---
PROCEDURE INFORMATION: Exam: XR Right Hand Exam date and time: 01/07/2023 10:30 PM Age: 27 years old Clinical indication: Pain; Hand; Right; Additional info: Previous fracture, eval TECHNIQUE: Imaging protocol: Radiologic exam of the right hand. Views: 3 or more views. COMPARISON: CR XR HAND RT MIN 3V 10/04/2022 1:09 PM FINDINGS: Bones/joints: No acute fracture, dislocation or osseous destructive process. Soft tissues: No acute finding or radiopaque foreign body. IMPRESSION: No acute findings.
--- NOTE | 2023-01-07 22:40 | PC.NURSE ---
pt to rad
--- NOTE | 2023-01-07 22:48 | HMH.EDGENADL ---
Discharge Plan Disposition Patient Disposition: Home, Self-Care Prescriptions Prescriptions: No Action No Known Home Medications Referrals Follow up/Referrals: Provider,Referral, MD [Primary Care Provider] - See instructions Activity Restrictions/Add. Instructions Additional Instructions/Restrictions: Call your family doctor to establish care for this visit to the emergency department and schedule follow-up within 48 hours to ensure improvement. If you have any worsening of your condition or any other concerning signs or symptoms, return to the emergency department or your primary care doctor for further evaluation. Take Tylenol 1000 mg every 6 hours (4 times daily) and ibuprofen 400 mg every 6 hours (4 times daily) as needed with food and water to prevent GI upset and kidney damage. Continue following up with orthopedics. Clinical Impressions Clinical Impression: Hand pain, right Discharge ED Provider: Jose Roberto Cardona General Adult HPI General Chief complaint: PAIN Stated complaint: poss needs RT hand cast rewrapped Time Seen by Provider: 01/07/23 22:25 Mode of Arrival: Ambulatory Limitations: No Limitations Description of Symptoms (Recalled from ER Triage Doc. by RN): Pt states he has a dislocation in his right hand that was reduced at [facility] on Monday. Pt c/o numbess in his right fifth digit startiing yesterday. Pt states this started yesterday, adn he loosened bianca wrap but its still numb. History of Present Illness HPI narrative: 27-year-old male no relevant medical history presenting with right hand pain and numbness. Patient states that he punched a wall last week. Went to [facility] due to pain in his hand. He was diagnosed with a dislocation of my hand. He said I was put to sleep and woke up and it was fixed. They splinted him and sent him home for follow-up. Patient presents today because he is having numbness in his right little finger and it is angulated toward his other fingers. Denies any other trauma. Related Data Home Medications Medication Instructions Recorded Confirmed No Known Home Medications 01/07/23 01/07/23 Allergies Allergy/AdvReac Type Severity Reaction Status Date / Time Sulfa (Sulfonamide Allergy Verified 07/08/21 08:12 Antibiotics) [facility] Disclaimer: The information contained in this section may have been updated after the patient was seen, as this information can be updated by other users. Social History Smoking Status: Current every day smoker alcohol intake: never current occupational status: unemployed Travel in the last 8 weeks: None ROS Obtained: Yes All systems reviewed & no additional complaints except as documented Physical Exam General General appearance: alert and in no apparent distress Head Head exam: atraumatic and normocephalic Eye Eye exam: Present normal appearance, PERRL and EOMI ENT ENT exam: Present mucous membranes moist Neck Neck exam: Present normal inspection, full ROM and trachea midline Respiratory Respiratory exam: Absent respiratory distress, wheezes, stridor, accessory muscle use or prolonged expiratory phase Cardiovascular Cardiovascular exam: Present normal rhythm Abdominal Exam Abdominal exam: Present soft; Absent distention, tenderness, guarding, rebound, rigidity or normal bowel sounds Extremities Exam Extremities exam: Present other (Tenderness, lateral angulation of right fifth digit. Capillary refill intact. Patient has sensation medial and laterally. Splint removed temporarily, no obvious deformity or open injury.); Absent edema Neurological Exam Neurological exam: Present alert, oriented X3, CN II-XII intact and normal gait; Absent motor sensory deficit Skin Skin exam: Present warm and dry; Absent diaphoresis or erythema Medical Decision Making Medical Records Medical records reviewed: Yes I reviewed the patient's
[2023-01-07 23:13] VITALS: BP 103/60; PULSE 75; RESP 16; TEMP 36.8; O2SAT 98
[2023-01-07 23:15] VITALS: BP 103/60; PULSE 69; RESP 16; TEMP 36.6; O2SAT 98
== END 2023-01-07 23:16 | disposition home or self-care (01) ==
PROVIDERS: Emergency Provider Emergency Medicine
DX: M79.641 Pain in right hand (principal); F17.210 Nicotine dependence, cigarettes, uncomplicated
CPT/HCPCS: 73130; 99283

== ENCOUNTER 2023-05-11 18:00 | Emergency (ER) | payer MEDICAID, SELFPAY ==
--- NOTE | 2023-05-11 19:02 | EXP.UTC ---
Discharge Plan Disposition Patient Disposition: Home, Self-Care Condition: Good Prescriptions Prescriptions: New azithromycin [Zithromax] 250 mg tablet 250 mg PO UD DOSE PK Qty: 6 0RF Rx Instructions: Take two (2) tablets today, then one (1) tablet days #2 thru #5 oseltamivir [Tamiflu] 75 mg capsule 75 mg PO BID Qty: 10 0RF methylprednisolone 4 mg Tablets,Dose Pack 4 mg PO DIRECTED 6 Days Qty: 21 0RF Rx Instructions: Take 1 pack as directed for 6 days hgwzqclfczwyphu-hdmqhqcfk-KZ [Bromfed DM] 2-30-10 mg/5 mL Syrup 5 ml PO Q6H PRN (Reason: Cough) Qty: 240 0RF Referrals Follow up/Referrals: Provider,Referral, MD [Primary Care Provider] - See instructions Activity Restrictions/Add. Instructions Additional Instructions/Restrictions: Drink plenty of fluids. Take tylenol or ibuprofen for pain or fever. Take the medications as directed. Follow up with your regular doctor. GO TO THE ER FOR ANY WORSENING SYMPTOMS Clinical Impressions Clinical Impression: Influenza B Stand Alone Forms Stand Alone Forms: Work/School Release Instructions Patient Instructions: Influenza, DI for Influenza -- Adult, Oseltamivir Discharge ED Provider: Orlin Jacobs [facility] General Stated complaint: body aches,nasty cough Time Seen by Provider: 05/11/23 19:02 History of Present Illness Provider Complaint: He states that for the past 2 days he has had fever, chills, body aches, malaise and a productive cough. Related Data Previous Rx's Medication Instructions Recorded azithromycin 250 mg tablet 250 mg PO UD DOSE PK #6 tabs 05/11/23 (Zithromax) buswdlypzpsisrb-ufhlkvmtiznhans-DU 5 ml PO Q6H PRN Cough #240 mL 05/11/23 2 mg-30 mg-10 mg/5 mL oral syrup (Bromfed DM) methylprednisolone 4 mg tablets in 4 mg PO DIRECTED 6 days #21 tabs 05/11/23 a dose pack oseltamivir 75 mg capsule (Tamiflu) 75 mg PO BID #10 caps 05/11/23 Allergies Allergy/AdvReac Type Severity Reaction Status Date / Time Sulfa (Sulfonamide Allergy Verified 07/08/21 08:12 Antibiotics) [facility] Disclaimer: The information contained in this section may have been updated after the patient was seen, as this information can be updated by other users. Social History Smoking Status: Current every day smoker alcohol intake: never current occupational status: unemployed Travel in the last 8 weeks: None ROS Obtained: Yes All systems reviewed & no additional complaints except as documented Constitutional Constitutional: Reports chills and Reports fever(s) Eyes Eyes: Denies eye discharge ENT Ears, Nose, Mouth, and Throat: Reports as per HPI Cardiovascular Cardiovascular: Denies chest pain Respiratory Respiratory: Denies chest congestion and Reports cough Gastrointestinal Gastrointestingal: Reports nausea; Denies abdominal pain, constipation, cramping, diarrhea or vomiting Musculoskeletal Musculoskeletal: Denies arthralgias Integumentary/Breasts Skin/Breast: Denies rash Neurologic Neurologic: Denies paresthesias Physical Exam General General appearance: alert and in no apparent distress Eye Eye exam: Present normal appearance, PERRL and EOMI ENT ENT exam: Present mucous membranes moist and normal external ear exam Expanded ENT Exam External ear exam: Present normal external inspection TM/Canal exam: Bilateral TM: erythema and bulging Nose exam: Absent sinus tenderness Nasal speculum exam: Bilateral: normal Mouth exam: Present normal external inspection; Absent drooling Teeth exam: Present normal inspection Throat exam: Present tonsillar erythema and tonsillomegaly Neck Neck exam: Present normal inspection, full ROM and trachea midline; Absent tenderness, lymphadenopathy or thyromegaly Chest Chest inspection: Present normal inspection and symmetric chest wall rise; Absent tenderness or rash Respiratory Respiratory exam: Present normal lung sounds bilaterally; Absent respiratory distress, wheezes, stridor or accessory muscle use Cardiovascular Cardiovascular exam: Present regular rate, normal rhythm and normal heart sounds Abdominal Exam Abdominal exam: Present soft; Absent distention, tenderness, guarding, rebound or rigidity Extremities Exam Extremities exam: Present normal inspection, full ROM and normal capillary refill; Absent tenderness or calf tenderness Back Exam Back exam: Present normal inspection and full ROM; Absent tenderness Neurological Exam Neurological exam: Present alert and oriented X3 Psychiatric Psychiatric exam: Present normal affect and normal mood Skin Skin exam: Present warm, dry, intact and normal color Lymphatic Lymphatic Findings: no adenopathy Medical Decision Making Medical Records Medical records reviewed: No I reviewed the patient's medical records. Artemio Inquiry Pt receiving controlled substance: No Lab Data Lab results reviewed: Yes I reviewed the patient's lab results.
[2023-05-11 19:05] VITALS: BP 105/46; PULSE 55; RESP 18; TEMP 36.8; O2SAT 97; BMI 23.7
[2023-05-11 19:19] LABS: UTC Influenza A Antigen Negative (Negative)
[2023-05-11 19:20] LABS: UTC Influenza B Antigen Positive (Negative)
[2023-05-11 19:27] VITALS: BP 105/46; PULSE 55; RESP 18; TEMP 36.8; O2SAT 97
== END 2023-05-11 19:31 | disposition home or self-care (01) ==
PROVIDERS: Emergency Provider Nurse Practitioner Family
DX: J10.1 Influenza due to other identified influenza virus with other respiratory manifestations (principal); R05.8 Other specified cough; R50.9 Fever, unspecified; R53.81 Other malaise; F17.210 Nicotine dependence, cigarettes, uncomplicated
CPT/HCPCS: 87804; 99212; 99214; G0463

== ENCOUNTER 2023-06-29 15:48 | Emergency (ER) | payer OTHER, SELFPAY ==
[2023-06-29 15:50] VITALS: BP 135/73; PULSE 76; RESP 18; TEMP 36.5; O2SAT 100; BMI 23.7
--- NOTE | 2023-06-29 16:12 | ED_ITS ---
Discharge Plan Disposition Patient Disposition: Home, Self-Care Chief Complaint: PAIN Prescriptions Prescriptions: No Action azithromycin [Zithromax] 250 mg tablet 250 mg PO UD DOSE PK Qty: 6 0RF Rx Instructions: Take two (2) tablets today, then one (1) tablet days #2 thru #5 oseltamivir [Tamiflu] 75 mg capsule 75 mg PO BID Qty: 10 0RF methylprednisolone 4 mg Tablets,Dose Pack 4 mg PO DIRECTED 6 Days Qty: 21 0RF Rx Instructions: Take 1 pack as directed for 6 days xzbvzvqwpkbiwjm-jadfjedme-UE [Bromfed DM] 2-30-10 mg/5 mL Syrup 5 ml PO Q6H PRN (Reason: Cough) Qty: 240 0RF Referrals Follow up/Referrals: Provider,Referral, MD [Primary Care Provider] - See instructions Activity Restrictions/Add. Instructions Additional Instructions/Restrictions: Follow-up with your family doctor regarding this visit to the emergency department within 48 hours. Clinical Impressions Clinical Impression: Concussion Qualifiers: Encounter type: initial encounter Loss of consciousness presence/duration: without LOC Qualified Code(s): S06.0X0A - Concussion without loss of consciousness, initial encounter Closed head injury Qualifiers: Encounter type: initial encounter Qualified Code(s): S09.90XA - Unspecified injury of head, initial encounter Discharge ED Provider: Jose Roberto Cardona General Adult HPI General Chief complaint: PAIN Stated complaint: WC- hit in head by garage door Time Seen by Provider: 06/29/23 15:56 History of Present Illness HPI narrative: This is a 28-year-old male with no relevant medical history presenting with minor head injury. Patient states he was at work just earlier this morning around 8 AM (8 hours prior to this visit) when he hit his head on a garage door that was coming down. Did not lose consciousness. No neck or back pain. States that he is having a headache. Took Tylenol, this helped, but did not take the headache away. Patient presents out of concern for headache. Headache is moderate, does not radiate, associated with photophobia, not phonophobia. No neurologic deficits, vision changes, nausea or vomiting, neck or back pain, or any other concerns. Please note that above description of symptoms, in this electronic medical record under categorization of recalled from ER triage doctor by RN are reflective of an initial nursing assessment, however, is not reflective of my full history and physical exam that was personally taken and clarified. Consequentially, this preceding description of symptoms, which may include the patient's categorized chief complaint in the EMR, do not reflect my personal clinical impression, and the ultimate description of history of present illness and patient stated complaints should be deferred to this section of the note. Unless stated otherwise or congruent with this section of the note, additional signs, symptoms, or incongruence should be interpreted as inaccurate with my clinical impression. Related Data Previous Rx's Medication Instructions Recorded azithromycin 250 mg tablet 250 mg PO UD DOSE PK #6 tabs 05/11/23 (Zithromax) bwcokkjpvmpqzty-nqhpsnubgdgzubh-BE 5 ml PO Q6H PRN Cough #240 mL 05/11/23 2 mg-30 mg-10 mg/5 mL oral syrup (Bromfed DM) methylprednisolone 4 mg tablets in 4 mg PO DIRECTED 6 days #21 tabs 05/11/23 a dose pack oseltamivir 75 mg capsule (Tamiflu) 75 mg PO BID #10 caps 05/11/23 Allergies Allergy/AdvReac Type Severity Reaction Status Date / Time Sulfa (Sulfonamide Allergy Verified 07/08/21 08:12 Antibiotics) [facility] Disclaimer: The information contained in this section may have been updated after the patient was seen, as this information can be updated by other users. Social History Smoking Status: Current every day smoker alcohol intake: never current occupational status: unemployed Travel in the last 8 weeks: None ROS Obtained: Yes All systems reviewed & no additional complaints except as documented Physical Exam General General appearance: alert and in no apparent distress Head Head exam: normocephalic and other (Small 1 cm superficial abrasion right side of forehead just below hairline. Not amenable to closure) Eye Eye exam: Present normal appearance, PERRL and EOMI ENT ENT exam: Present mucous membranes moist Neck Neck exam: Present normal inspection, full ROM and trachea midline Respiratory Respiratory exam: Absent respiratory distress, wheezes, stridor, accessory muscle use or prolonged expiratory phase Cardiovascular Cardiovascular exam: Present normal rhythm Abdominal Exam Abdominal exam: Present soft; Absent distention, tenderness, guarding, rebound or rigidity Extremities Exam Extremities exam: Absent edema Neurological Exam Neurological exam: Present alert, oriented X3, CN II-XII intact and normal gait; Absent motor sensory deficit Psychiatric Psychiatric exam: Present normal affect Skin Skin exam: Present warm and dry; Absent diaphoresis or erythema Medical Decision Making Medical Records Medical records reviewed: Yes I reviewed the patient's medical records. Artemio Inquiry Pt receiving controlled substance: No Artemio was queried for this patient: No Vital Signs: 06/29/23 15:50 06/29/23 17:06 Temperature 97.7 F Temperature Source Oral Pulse Rate 75 Pulse Rate [Radial] 76 Respiratory Rate 18 Blood Pressure 108/69 L Blood Pressure [Right Arm] 135/73 Blood Pressure Mean [Right Arm] 93 02 Sat by Pulse Oximetry 100 99 Oxygen Delivery Method Room Air Room Air Orders (Tests/Meds): ED MEDICATIONS Discontinued Medications Generic Name Dose Route Start Last Admin Trade Name Luisq PRN Reason Stop Dose Admin Acetaminophen 1,000 mg 06/29/23 16:10 06/29/23 16:48 Acetaminophen 500mg Tab PO 06/29/23 16:11 1,000 mg ONCE ONE Administration Dexamethasone 10 mg 06/29/23 16:10 06/29/23 16:49 Dexamethasone 4mg Tablet PO 06/29/23 16:11 10 mg ONCE ONE Administration Diphenhydramine HCl 25 mg 06/29/23 16:10 06/29/23 16:15 Diphenhydramine 25mg Capsule PO 06/29/23 16:11 Not Given ONCE ONE Ibuprofen 600 mg 06/29/23 16:10 06/29/23 16:49 Ibuprofen 600 Mg Tablet PO 06/29/23 16:11 600 mg ONCE ONE Administration Prochlorperazine Maleate 10 mg 06/29/23 16:10 06/29/23 16:48 Prochlorperazine 10mg Tablet PO 06/29/23 16:11 10 mg ONCE ONE Administration Medical Decision Narrative: This is a 28-year-old male with no relevant medical history presenting with minor head injury. Patient states he was at work just earlier this morning around 8 AM (8 hours prior to this visit) when he hit his head on a garage door that was coming down. Did not lose consciousness. No neck or back pain. States that he is having a headache. Took Tylenol, this helped, but did not take the headache away. Patient presents out of concern for headache. Headache is moderate, does not radiate, associated with photophobia, not phonophobia. No neurologic deficits, vision changes, nausea or vomiting, neck or back pain, or any other concerns. History obtained with patient. On physical exam, patient has superficial abrasion right side of forehead, not amenable to closure. Neurologically intact. [place] CT head negative. Nexus C-spine negative. Patient to be given headache cocktail orally with Compazine, ibuprofen, Tylenol, Decadron. On reevaluation, patient remains at baseline. Headache improved. Because patient at baseline without signs or symptoms of clinical decompensation, deemed appropriate for discharge. Results were relayed to patient who voiced understanding and were agreeable to outpatient management and follow up. I discussed my clinical impression with patient and answered all questions. At this time, the evidence for any other entities in the differential is insufficient to warrant any further testing or ED observation. This was explained as well. Advisory was given that persistent or worsening symptoms require further evaluation. I confirmed the understanding of this discussion. Critical Care Critical Care Time Critical Care Time: No
[2023-06-29] MEDS: ACETAMINOPHEN 500MG TAB 1000 MG PO (16:48)
[2023-06-29] MEDS: PROCHLORPERAZINE 10MG TABLET 10 MG PO (16:48)
[2023-06-29] MEDS: DEXAMETHASONE 4MG TABLET 10 MG PO (16:49)
[2023-06-29] MEDS: IBUPROFEN 600 MG TABLET PO (16:49)
--- NOTE | 2023-06-29 16:50 | PC.NURSE ---
PT RESTING IN CHAIR. NO NEEDS VOICED AT THIS TIME. CALL LIGHT WITHIN REACH.
[2023-06-29 17:06] VITALS: BP 108/69; PULSE 75; O2SAT 99
--- NOTE | 2023-06-29 17:15 | PC.NURSE ---
rounded on pt, he does not need anything at this time.
--- NOTE | 2023-06-29 17:45 | PC.NURSE ---
PT RESTING IN CHAIR. CALL LIGHT WITHIN REACH. NO NEEDS VOICED AT THIS TIME
--- NOTE | 2023-06-29 18:02 | PC.NURSE ---
Addendum entered by Ritika Miguel RN 06/29/23 18:20: this nurse spoke with MD upon triage who spoke with and explained to the patient that he was ordering a migrane cocktail and to let him know if those medications did not improve his symptoms. Original Note: Went to dc pt and he states that no one has been in there to do anything but given him tylenol and take his papers and hook him up to this machine, pointing to the vital machine. States that no doctor has been back in to see him, discussed with pt medicine that has been documented that was given, tylenol, motrin, compazine, decadron, pt then states that well whatever they brought me yall sit me in this chair for 4 hours, forgot about me discussed with pt that we can re evaluate his symptoms to improve his SHIELDS if those medicine did not help him, he states no that he just wants his papers and he wants out of here. He wants to go to another hospital to get better care. aware of pt complaint and HS
[2023-06-29 18:11] VITALS: BP 100/66; PULSE 73; RESP 16; TEMP 36.5; O2SAT 100
== END 2023-06-29 18:12 | disposition home or self-care (01) ==
PROVIDERS: Emergency Provider Emergency Medicine
DX: S06.0X0A Concussion without loss of consciousness, initial encounter (principal); F17.210 Nicotine dependence, cigarettes, uncomplicated; W20.8XXA Other cause of strike by thrown, projected or falling object, initial encounter
CPT/HCPCS: 99283